=== PATIENT | female | born 1960 | race Caucasian/White ===

== ENCOUNTER → 2022-09-16 12:12 | Outpatient (CLI) | payer OTHER, SELFPAY ==
--- NOTE | 2022-09-16 | DI.US.S_ITS ---
PROCEDURE: US ABD AORTA ANEURYSM SCREEN INDICATIONS: POSSIBLE ENLARGED AORTA TECHNIQUE: Real time scanning was performed of the aorta and iliac arteries, with image documentation. COMPARISON: None. FINDINGS: Aorta: Proximal aortic diameter measures 2 cm. Mid-aorta measures 1.7 cm. Distal aortic diameter is 1.5 cm. Iliac arteries: Right common iliac artery measures 1.1 cm. Left common iliac artery measures 1 cm. IMPRESSION: Negative for aneurysm. Dictated by: Durga Valdivia M.D. on 09/16/2022 at 12:29 Approved by: Durga Valdivia M.D. on 09/16/2022 at 12:29
== END ==
PROVIDERS: PCP Nurse Practitioner Family; Referring Provider Nurse Practitioner Family; Visit Provider Nurse Practitioner Family
DX: Z13.6 Encounter for screening for cardiovascular disorders (principal)
CPT/HCPCS: 76706